=== PATIENT | male | born 1975 ===

== ENCOUNTER 2017-10-17 15:25 | Emergency (ER) | payer OTHER ==
[2017-10-17 15:49] VITALS: TEMP 98.7
[2017-10-17] MEDS ORDERED: Tdap Vaccine 0.5 ml Vial (10-64 yrs) IM ONE ×2 (16:24→16:42)
--- NOTE | 2017-10-17 16:24 | ED PDOC ---
Lower Extremity Pain/Injury Time Seen by Provider: 10/17/17 15:56 Chief Complaint (Nursing): Lower Extremity Problem/Injury Chief Complaint (Provider): left knee injury History Per: Patient Additional Complaint(s): 41-year-old male presents to emergency department with left knee injury s/p trip and fell from height of 10 feet off the ground. Pt reports he is able to ambulate. He denies any head injury or LOC. Patient took 2 tabs tylenol but this did not help. Patient is not sure of last tetanus booster. He also states he is out of his HTN meds. PMD: [facility] Past Medical History Reviewed: Historical Data, Nursing Documentation, Vital Signs Vital Signs: Last Vital Signs Temp 98.7 F 10/17/17 15:45 Pulse 95 H 10/17/17 15:45 Resp 16 10/17/17 15:45 BP 174/94 H 10/17/17 15:45 Pulse Ox 98 10/17/17 15:45 - Medical History PMH: COPD, HTN - Surgical History Surgical History: No Surg Hx - Family History Family History: States: No Known Family Hx - Living Arrangements Living Arrangements: With Family - Social History Current smoker - smoking cessation education provided: Yes Alcohol: Social Drugs: Denies - Immunization History Hx Tetanus Toxoid Vaccination: No (not sure of last booster) - Home Medications Home Medications: Ambulatory Orders Medication Instructions Recorded Carvedilol [Coreg] 25 mg PO BID #20 tab 10/17/17 Furosemide [Lasix] 40 mg PO DAILY #10 tab 10/17/17 Lisinopril [Zestril] 40 mg PO DAILY #10 tab 10/17/17 Naproxen [Naprosyn] 500 mg PO BID #20 tab 10/17/17 - Allergies Allergies/Adverse Reactions: Allergies Allergy/AdvReac Type Severity Reaction Status Date / Time No Known Allergies Allergy Verified 10/17/17 15:45 Wells Criteria for PE - Wells Criteria for Pulmonary Embolism Clinical Signs and Symptoms of DVT: No P.E is #1 Diagnosis, or Equally Likely: No Heart Rate >100: No Immobilization at least 3 days;Surgery previous 4 weeks: No Previous, objectively diagnosed PE or DVT: No Hemoptysis: No Malignancy w/treatment within 6 months, or palliative: No Total Score: 0 Review of Systems ROS Statement: Except As Marked, All Systems Reviewed And Found Negative Musculoskeletal: Positive for: Other (left leg injury) Neurological: Positive for: Other (denies head injury or LOC) Physical Exam - Reviewed Nursing Documentation Reviewed: Yes Vital Signs Reviewed: Yes - Physical Exam Appears: Positive for: Well, Non-toxic, No Acute Distress Head Exam: Positive for: ATRAUMATIC, NORMAL INSPECTION Skin: Positive for: Normal Color. Negative for: Rash Eye Exam: Positive for: Normal appearance Neck: Positive for: Normal Cardiovascular/Chest: Positive for: Regular Rate, Rhythm Respiratory: Positive for: Normal Breath Sounds Extremity: Positive for: Other (moderate ecchymosis and swelling to left patellar region with full ROM, 2 superficial abrasions to posterior left knee with no active bleeding, normal distal sensation left lower extremity) Neurologic/Psych: Positive for: Alert, Oriented, Gait (steady) - ECG O2 Sat by Pulse Oximetry: 98 (RA) Pulse Ox Interpretation: Normal - Other Rad Left knee x-ray X-Ray: Interpreted by Me, Viewed By Me X-Ray Interpretation: no fx, no dis Medical Decision Making Medical Decision Makin-year-old male with left knee injury Plan: - Left Knee X-Ray - Adacel (10-64 years) 0.5 ml IM - Toradol 30 mg IM - Ulram 50 mg PO Abrasions were cleansed with saline and betadine, bacitracin and bandage applied. Knee Immobilizer applied to left leg, neurovascular intact status post placement. Crutches also given and patient was taught on proper use. Patient has also not taken blood pressure meds in 3 days, he was given 40 mg lisinopril, 40 mg Lasix and 25 mg Coreg in ED. Rx given for same. Rx also given for naprosyn for knee pain. Patient was referred to ortho print production associate for follow up. Scribe Attestation: Documented by Enrique Justin, acting as a scribe for Kandace Stevenson PA-C. Provider Scribe Attestation: All medical record entries made by the Scribe were at my direction and personally dictated by me. I have reviewed the chart and agree that the record accurately reflects my personal performance of the history, physical exam, medical decision making, and the department course for this patient. I have also personally directed, reviewed, and agree with the discharge instructions and disposition. Disposition - Clinical Impression Clinical Impression: Knee contusion, Knee abrasion, High blood pressure, Requires a booster tetanus - Patient ED Disposition Is Patient to be Admitted: No Counseled Patient/Family Regarding: Studies Performed, Diagnosis, Need For Followup, Rx Given - Disposition Referrals: Bk Bill III, MD [Staff Provider] - [facility] [Provider Group] Disposition: Routine/Home Disposition Time: 18:16 Condition: STABLE Additional Instructions: Ice, elevate and rest affected area. Take prescription meds as directed. Follow- up with primary doctor or orthopedist. Prescriptions: Carvedilol [Coreg] 25 mg PO BID #20 tab Furosemide [Lasix] 40 mg PO DAILY #10 tab Lisinopril [Zestril] 40 mg PO DAILY #10 tab Naproxen [Naprosyn] 500 mg PO BID #20 tab Instructions: High Blood Pressure in Adults, Skin Abrasions (DC), Knee Sprain ( DC) Forms: [employer] (Lithuanian), [facility] ED School/Work Excuse
--- NOTE | 2017-10-17 17:24 | RAD ---
Date of service: 10/17/2017 PROCEDURE: Left Knee Radiographs. HISTORY: Pain. COMPARISON: None. FINDINGS: BONES: No acute fracture. JOINTS: Unremarkable. JOINT EFFUSION: None. OTHER FINDINGS: None. IMPRESSION: No demonstrated fracture or dislocation.
[2017-10-17 19:26] VITALS: BP 128/85; PULSE 67; RESP 18; O2SAT 99
== END 2017-10-17 19:29 | disposition home or self-care (01) ==
LOC: H.ER 15:25
DX: S89.92XA Unspecified injury of left lower leg, initial encounter (principal); S80.02XA Contusion of left knee, initial encounter; S80.212A Abrasion, left knee, initial encounter; I10 Essential (primary) hypertension; Z23 Encounter for immunization; F17.200 Nicotine dependence, unspecified, uncomplicated; J44.9 Chronic obstructive pulmonary disease, unspecified; W17.89XA Other fall from one level to another, initial encounter
CPT/HCPCS: 73562; 90471; 90715; 96372; 99285; J1885